=== PATIENT | female | born 1950 | race Caucasian/White ===

== ENCOUNTER 2018-08-29 09:22 | Emergency (ER) | payer BC, SELFPAY ==
[2018-08-29 09:26] VITALS: BP 116/71; PULSE 114; RESP 18; TEMP 37.4; O2SAT 98; BMI 24.2
--- NOTE | 2018-08-29 09:28 | ED.GENADULT ---
HPI - General Adult General Chief complaint: Fever Stated complaint: sick for 3 days Time Seen by Provider: 08/29/18 09:28 Source: patient Mode of arrival: ambulatory Limitations: no limitations History of Present Illness HPI narrative: patient is a 68-year-old female here for evaluation of approximately 3 days of generalized malaise and rigors And not feeling very well. Also has a headache today. States she is drinking plenty of water. Also has right upper quadrant and right flank pain with deep breathing. No urinary symptoms. Some nausea but no vomiting. No change in bowel. No recent travel. No skin changes. Related Data Home Medications Medication Instructions Recorded Confirmed bupropion HCl 150 mg PO QAM 08/29/18 08/29/18 Previous Rx's Medication Instructions Recorded ciprofloxacin HCl 500 mg PO BID 7 Days #14 tab 08/29/18 ondansetron [Zofran ODT] 4 mg PO BID-TID PRN #10 tab 08/29/18 Allergies Allergy/AdvReac Type Severity Reaction Status Date / Time Sulfa (Sulfonamide Allergy Intermediate Hives Verified 08/29/18 09:30 Antibiotics) Review of Systems Constitutional Reports fever(s) ( Subjective) and Reports headache(s) ENT Ears, Nose, Mouth, and Throat: Denies vertigo and Reports headache(s) Cardiovascular Denies chest pain, Denies rapid heart rate, Denies palpitations and Denies dyspnea Respiratory Denies cough and Denies dyspnea Gastrointestinal Gastrointestinal: Reports abdominal pain ( right upper quadrant), Denies change in stool character, Denies nausea and Denies vomiting Genitourinary Denies dysuria, Denies urinary incontinence, Denies urinary hesitancy and Denies urinary urgency Musculoskeletal Reports myalgias and Reports arthralgias Integumentary/Breasts Denies lesions and Denies rash Neurologic Denies confusion, Denies vertigo and Reports headache(s) Psychiatric Denies confusion Endocrine Denies palpitations Hematologic/Lymphatic Denies easy bleeding and Denies easy bruising [facility] Medical History Healthy adult (Acute) Surgical History No pertinent past surgical history (Acute) Social History Smoking Status: Former smoker Exam Initial Vital Signs Initial Vital Signs: Vital Signs Temperature 99.3 F 08/29/18 09:26 Pulse Rate 114 H 08/29/18 09:26 Respiratory Rate 18 08/29/18 09:26 Blood Pressure 116/71 08/29/18 09:26 Pulse Oximetry 98 08/29/18 09:26 Const General: cooperative, healthy appearing, comfortable, well developed, well groomed and No acute distress Orientation: alert, awake and oriented x3 HENMT Head: normal to inspection and normocephalic Resp Effort & Inspection: normal respiratory effort Auscultation: clear to auscultation bilaterally Cardio Rate: tachycardic Rhythm: regular rhythm Pulses: radial pulses present GI Inspection: non-distended Palpation: soft, No firm and No ascites Back/Spine/Pelvis Back: No CVA tenderness ( no CVA tenderness on my exam) Skin Lesions: no lesions Rashes: no rashes Neuro General: alert, awake and oriented x3 Extrem General: normal to inspection and capillary refill normal Psych Appearance: grossly normal and well kempt Course Orders Ordered: ED Orders 08/29/18 09:44 Urine Microscopic Stat 08/29/18 09:51 XR chest 2V Stat 08/29/18 10:42 Complete Blood Count AUTO DIFF Stat Comprehensive Metabolic Panel Stat Lactate (Lactic Acid) Stat Lipase Stat Procalcitonin Stat Sodium Chloride (Normal Saline 0.9%) 1,000 mls @ 1,000 mls/hr IV BOLUS ONE Stop: 08/29/18 12:05 Last Admin: 08/29/18 11:09 Dose: 1,000 mls/hr Discontinued Medications Acetaminophen (Tylenol) 650 mg PO NOW ONE Stop: 08/29/18 09:53 Last Admin: 08/29/18 10:17 Dose: 650 mg Sodium Chloride (Normal Saline 0.9%) 1,000 mls @ 1,000 mls/hr IV BOLUS ONE Stop: 08/29/18 10:32 Last Infusion: 08/29/18 11:09 Dose: 0 mls/hr Admin: 08/29/18 10:17 Dose: 1,000 mls/hr Vital Signs - 8 hr 08/29/18 09:26 08/29/18 10:17 08/29/18 10:21 Temperature 99.3 F 99.3 F Pulse Rate 114 H 107 H Respiratory Rate 18 14 Blood Pressure 116/71 Blood Pressure [Left Arm] 114/74 Pulse Oximetry 98 99 08/29/18 11:10 Temperature 100.6 F H Pulse Rate 100 H Respiratory Rate Blood Pressure Blood Pressure [Left Arm] 102/60 Pulse Oximetry 94 Medical Decision Making Lab Data Lab results reviewed: Yes I reviewed the patient's lab results. Result diagrams: 08/29/18 10:42 08/29/18 10:42 Lab Results 08/29/18 08/29/18 08/29/18 Range/Units 09:44 10:42 10:42 WBC 14.5 H (4.5-11.0) X10^3/uL RBC 4.00 (4.0-5.2) X10^6/uL Hgb 12.2 (12.0-16.0) g/dL Hct 36.2 (36-46) % MCV 90.4 (80-100) fL MCH 30.6 (26-34) PG MCHC 33.8 (30-36) % RDW 12.3 (11.6-14.8) % Plt Count 230 (150-400) X10^3/uL Neut % (Auto) 80.8 H (50-75) % Lymph % (Auto) 7.3 L (25-40) % [place] % (Auto) 11.7 (3-14) % Eos % (Auto) 0.0 L (2-4) % Baso % (Auto) 0.2 (0-2) % Neut # (Auto) 06501 H (2641-4404) /uL Sodium 140 (137-145) mmol/L Potassium 3.7 (3.4-5.1) mmol/L Chloride 105 (98-107) mmol/L Carbon Dioxide 23 (22-32) mmol/L BUN 10 (7-17) mg/dL Creatinine 0.70 (0.52-1.04) mg/dL Estimated GFR > 60.0 (>60) mL/min BUN/Creatinine Ratio 14.3 (6-22) Glucose 113 H (80-110) mg/dL Lactate (0.7-2.1) mmol/L Calcium 8.1 L (8.4-10.2) mg/dL Total Bilirubin 1.7 H (0.2-1.3) mg/dL AST 57 H (14-36) IU/L ALT 86 H (9-52) IU/L Alkaline Phosphatase 105 (38-126) U/L Total Protein 6.7 (6.3-8.2) g/dL Albumin 3.6 (3.5-5.0) g/dL Globulin 3.1 (1.7-4.1) g/dL Albumin/Globulin Ratio 1.2 (1.0-2.8) Lipase 30 (23-300) U/L Procalcitonin (<0.5) ng/mL Urine RBC 1-5/hpf (0-5/HPF) Urine WBC 30-100/hpf H (0-5/HPF) Ur Squamous Epith Cells 5-10 /hpf H Urine Bacteria Many (>30) H (None) Ur Culture Indicated? Cult not indicated Micro UA Comment Not Reportable 08/29/18 08/29/18 Range/Units 10:42 10:42 WBC (4.5-11.0) X10^3/uL RBC (4.0-5.2) X10^6/uL Hgb (12.0-16.0) g/dL Hct (36-46) % MCV (80-100) fL MCH (26-34) PG MCHC (30-36) % RDW (11.6-14.8) % Plt Count (150-400) X10^3/uL Neut % (Auto) (50-75) % Lymph % (Auto) (25-40) % [place] % (Auto) (3-14) % Eos % (Auto) (2-4) % Baso % (Auto) (0-2) % Neut # (Auto) (7557-3118) /uL Sodium (137-145) mmol/L Potassium (3.4-5.1) mmol/L Chloride (98-107) mmol/L Carbon Dioxide (22-32) mmol/L BUN (7-17) mg/dL Creatinine (0.52-1.04) mg/dL Estimated GFR (>60) mL/min BUN/Creatinine Ratio (6-22) Glucose (80-110) mg/dL Lactate 0.9 (0.7-2.1) mmol/L Calcium (8.4-10.2) mg/dL Total Bilirubin (0.2-1.3) mg/dL AST (14-36) IU/L ALT (9-52) IU/L Alkaline Phosphatase (38-126) U/L Total Protein (6.3-8.2) g/dL Albumin (3.5-5.0) g/dL Globulin (1.7-4.1) g/dL Albumin/Globulin Ratio (1.0-2.8) Lipase (23-300) U/L Procalcitonin 0.55 H (<0.5) ng/mL Urine RBC (0-5/HPF) Urine WBC (0-5/HPF) Ur Squamous Epith Cells Urine Bacteria (None) Ur Culture Indicated? Micro UA Comment Urine Dip Bedside Urine Glucose Negative Bedside Urine Bilirubin - Negative Bedside Urine Ketone ++ 40 Urine Specific [place] 1.015 Bedside Urine Occult Blood + Bedside Urine pH 6.0 Bedside Urine Protein ++ 100 Bedside Urine Urobilinogen 2+ 4mg Bedside Urine Nitrite + Positive Bedside Urine Leukocytes ++ 125 Esterase Point of care testing: Urine Dip Bedside Urine Glucose Negative Bedside Urine Bilirubin - Negative Bedside Urine Ketone ++ 40 Urine Specific [place] 1.015 Bedside Urine Occult Blood + Bedside Urine pH 6.0 Bedside Urine Protein ++ 100 Bedside Urine Urobilinogen 2+ 4mg Bedside Urine Nitrite + Positive Bedside Urine Leukocytes ++ 125 Esterase Imaging Data Chest x-ray: Radiologist's impression: PROCEDURE: XR CHEST 2V INDICATIONS: right sided pain with deep breath TECHNIQUE: 2 views of the chest were acquired. COMPARISON: None. FINDINGS: Surgical changes and devices: None. Lungs and pleura: No pleural effusions or pneumothorax. Lungs are clear. Mediastinum: Mediastinal contours are normal. Heart size is normal. Bones and chest wall: No suspicious bony abnormalities. Soft tissues appear unremarkable. IMPRESSION: No acute cardiopulmonary pathology. Dictated by: Zach Hernandez M.D. on 08/29/2018 at 10:24 Approved by: Zach Hernandez M.D. on 08/29/2018 at 10:25 MDM Narrative Medical decision making narrative: Patient is nontoxic appearing. He is tolerating oral intake. Does have an elevated white blood cell count but given the setting of a nitrite positive urine I suspect that the urinary tract infection is what is causing her leukocytosis. She is also slightly febrile. Lactate unremarkable. Does has a slightly elevated procalcitonin. She does have right flank pain. Slightly elevation of her liver function tests however her physical exam is not consistent with gallbladder pathology. I do suspect potential pyelonephritis. she is tolerating oral intake. Will send home with antibiotics in nausea medication. Did inform her that if she could not take the antibiotics, her symptoms worsen, she started to get worsening right upper quadrant pain that she does need to return to the emergency department for re-evaluation. I do feel that a trial of home with p.o. antibiotics is not unreasonable given her clinical condition. Patient expressed understanding and agreement plan. Discharge Plan Departure Patient Disposition: Home Clinical Impression: Pyelonephritis Instructions: DI for Kidney Infection Activity Restrictions/Additional Instructions: recommend that you increase your fluid intake. If your symptoms worsen or do not improve despite the antibiotics you were given today than you do need to be re-evaluated. If you cannot take the antibiotics at home for any reason then return to the emergency department for re-evaluation. Call your primary care doctor for a follow-up. Prescriptions: New ciprofloxacin HCl 500 mg tablet 500 mg PO BID 7 Days Qty: 14 RF: 0 ondansetron [Zofran ODT] 4 mg tablet,disintegrating 4 mg PO BID-TID PRN (Reason: nausea and vomiting) Qty: 10 RF: 0 No Action bupropion HCl 150 mg Tablet Extended Release 24 Hr 150 mg PO QAM RF: 0
--- NOTE | 2018-08-29 09:51 | DI.RAD.S_ITS ---
PROCEDURE: XR CHEST 2V INDICATIONS: right sided pain with deep breath TECHNIQUE: 2 views of the chest were acquired. COMPARISON: None. FINDINGS: Surgical changes and devices: None. Lungs and pleura: No pleural effusions or pneumothorax. Lungs are clear. Mediastinum: Mediastinal contours are normal. Heart size is normal. Bones and chest wall: No suspicious bony abnormalities. Soft tissues appear unremarkable. IMPRESSION: No acute cardiopulmonary pathology. Dictated by: Zach Hernandez M.D. on 08/29/2018 at 10:24 Approved by: Zach Hernandez M.D. on 08/29/2018 at 10:25
[2018-08-29 10:17] VITALS: TEMP 37.4
[2018-08-29] MEDS: SODIUM CHLORIDE 0.9% 1,000 ML 1000 ML IV ×2 (10:17→11:09)
[2018-08-29] MEDS: ACETAMINOPHEN 325 MG TABLET 650 MG PO (10:17)
[2018-08-29 10:19] LABS: Bacteria Urine Many (>30); Culture Indicated Urine Cult Not Indicated; RBC Urine 1-5/HPF (0-5/HPF); Squamous Epithelial Cell Urine 5-10 /HPF; WBC Urine 30-100/HPF (0-5/HPF)
[2018-08-29 10:21] VITALS: BP 114/74; PULSE 107; RESP 14; O2SAT 99
[2018-08-29 11:07] LABS: Add Manual Diff / Slide Review NO; Basophils Percent Auto 0.2 % (0-2); Hematocrit 36.2 % (36-46); Hemoglobin 12.2 g/dL (12.0-16.0); Lactate (Lactic Acid) 0.9 mmol/L (0.7-2.1); Lymphocytes Percent Auto 7.3 % (25-40); Mean Corpuscular HGB Conc 33.8 % (30-36); Mean Corpuscular Hemoglobin 30.6 PG (26-34); Mean Corpuscular Volume 90.4 fL (80-100); Monocytes Percent Auto 11.7 % (3-14); Neutrophils Absolute Auto 11700 /uL (3000-5900); Neutrophils Percent Auto 80.8 % (50-75); Platelet Count 230 X10^3/uL (150-400); Red Cell Distribution Width 12.3 % (11.6-14.8); White Blood Cell Count 14.5 X10^3/uL (4.5-11.0)
[2018-08-29 11:10] VITALS: BP 102/60; PULSE 100; TEMP 38.1; O2SAT 94
[2018-08-29 11:10] LABS: Alanine Aminotransferase 86 IU/L (9-52); Albumin 3.6 g/dL (3.5-5.0); Albumin Globulin Ratio 1.2 (1.0-2.8); Alkaline Phosphatase 105 U/L (38-126); Aspartate Aminotransferase 57 IU/L (14-36); BUN Creatinine Ratio 14.3 (6-22); Bilirubin Total 1.7 mg/dL (0.2-1.3); Blood Urea Nitrogen 10 mg/dL (7-17); Calcium 8.1 mg/dL (8.4-10.2); Carbon Dioxide 23 mmol/L (22-32); Chloride 105 mmol/L (98-107); Estimated Glomerular Filt Rate > 60.0 mL/min (>60); Globulin 3.1 g/dL (1.7-4.1); Glucose 113 mg/dL (80-110); HEMOLYSIS < 15 (0-50); Lipase 30 U/L (23-300); Potassium 3.7 mmol/L (3.4-5.1); Sodium 140 mmol/L (137-145); Total Protein 6.7 g/dL (6.3-8.2)
[2018-08-29 11:29] LABS: Procalcitonin 0.55 ng/mL (<0.5)
[2018-08-29 12:08] VITALS: TEMP 36.7
== END 2018-08-29 12:09 | disposition home or self-care (01) ==
PROVIDERS: Emergency Provider Emergency Medicine
DX: N12 Tubulo-interstitial nephritis, not specified as acute or chronic (principal)
CPT/HCPCS: 36415; 71046; 80053; 81003; 81015; 83605; 83690; 84145; 85025; 87077; 87086; 87186; 96360; 96361; 99283; 99284

== ENCOUNTER 2018-08-30 17:22 | Inpatient (IN) | payer MEDICARE, BC, SELFPAY ==
[2018-08-30 17:26] VITALS: BP 129/73; PULSE 82; RESP 22; TEMP 36.5; O2SAT 100
--- NOTE | 2018-08-30 17:45 | DI.US.S_ITS ---
PROCEDURE: US ABDOMEN COMPLETE INDICATIONS: PAIN TECHNIQUE: Real-time scanning was performed of the abdominal and retroperitoneal organs, with image documentation. COMPARISON: None. FINDINGS: Liver: Liver is normal in size. There are a few simple hepatic cysts, including a large cyst in the right hepatic lobe measuring up to 9.5 x 8.3 x 9.1 cm. Gallbladder: No gallstones, gallbladder wall thickening, or pericholecystic fluid. Biliary ducts: Intrahepatic bile ducts are non-dilated. Extrahepatic bile duct caliber measures 6 mm. Normal is 6-7 mm or less in diameter, or 10 mm or less post-cholecystectomy. Pancreas: Not well-seen. Spleen: Spleen is normal in size and homogeneous in echotexture. Kidneys: Right kidney measures 12.2 cm long; left kidney measures 10.3 cm long. No hydronephrosis. Aorta: Visualized aorta is normal in caliber at less than 3 cm. Iliacs: Proximal common iliac arteries are normal in caliber at less than 2.5 cm. IVC: Intrahepatic inferior vena cava is patent. Miscellaneous: No free abdominal fluid. IMPRESSION: 1. No definite acute intra-abdominal sonographic abnormality. 2. Multiple hepatic cysts measuring up to 9.5 cm. Dictated by: Al Mathew M.D. on 08/30/2018 at 18:57 Approved by: Al Mathew M.D. on 08/30/2018 at 19:09
--- NOTE | 2018-08-30 18:06 | ED.ABDPAIN ---
HPI - Abdominal Pain <KEVAN Dickinson - Last Filed: 08/30/18 21:21> General Chief Complaint: Abdominal Pain Stated Complaint: STATES PAIN IS BAD, THINKS GALBLADDER Time Seen by Provider: 08/30/18 17:31 Source: patient Mode of arrival: ambulatory Limitations: no limitations History of Present Illness HPI narrative: patient presents with chief complaint of abdominal pain. She states she was seen yesterday and diagnosed with pyelonephritis. She complains of persistent right upper quadrant abdominal pain radiating to her back. She has taken 3 doses of Cipro. She also complains of nausea as taken several doses of Zofran. She denies any fevers. She denies any chest pain or shortness of breath. she does complaint of bilateral flank pain. She denies any dysuria urgency or frequency. Related Data Allergies Allergy/AdvReac Type Severity Reaction Status Date / Time Sulfa (Sulfonamide Allergy Verified 08/30/18 17:28 Antibiotics) Review of Systems <BEAR Dickinson - Last Filed: 08/30/18 21:21> Review of Systems GENERAL: Denies chills, fatigue, malaise, fever, sweats. HEENT: Denies sinus pain, ear pain, sore throat, difficulty swallowing, dizziness. RESPIRATORY: Denies dyspnea, cough, wheezing, hemoptysis, sputum. CARDIOVASCULAR: Denies chest pain, palpitations, orthopnea, edema, GASTROINTESTINAL: see HPI : see HPI MUSCULOSKELETAL: denies weakness, joint pain, or bony pain SKIN: Denies rash, skin lesions, or other NEUROLOGIC: Denies weakness, headache, numbness, change in speech, confusion, seizures, incoordination. PSYCHIATRIC: No concerning psychosocial issues. 12 point review of systems is negative except for those stated above Exam <KEVAN Dickinson - Last Filed: 08/30/18 21:21> Narrative Exam Narrative: GENERAL: This is a well-nourished, well-developed patient, Teary. HEAD: Atraumatic. Normocephalic. No temporal or scalp tenderness. EYES: Pupils equal round and reactive. Extraocular motions intact. No scleral icterus. No injection or drainage. ENT: Nose without bleeding, purulent drainage or septal hematoma. Throat without erythema, tonsillar hypertrophy or exudate. Uvula midline. Airway patent. NECK: Trachea midline. No JVD or lymphadenopathy. Supple, nontender, no meningeal signs. CARDIOVASCULAR: Regular rate and rhythm without murmurs, gallops, or rubs. RESPIRATORY: Clear to auscultation. Breath sounds equal bilaterally. No wheezes, rales, or rhonchi. GASTROINTESTINAL: Abdomen soft. Generalized pain to palpation. Bilateral CVA tenderness. Positive Reilly sign. Patient has severe pain on palpation of right upper quadrant. No pulsatile mass. EXTREMITIES: No clubbing, cyanosis, or edema. No joint tenderness, effusion, or edema noted. BACK: Nontender without deformity or crepitance. CVA tenderness bilaterally NEURO: AOx3. SKIN: No rash or erythema. Initial Vital Signs Initial Vital Signs: Vital Signs Temperature 97.7 F 08/30/18 17:26 Pulse Rate 82 08/30/18 17:26 Respiratory Rate 22 08/30/18 17:26 Blood Pressure 129/73 08/30/18 17:26 Pulse Oximetry 100 08/30/18 17:26 <Tami Watters DO - Last Filed: 08/30/18 22:36> Initial Vital Signs Initial Vital Signs: Vital Signs Temperature 97.7 F 08/30/18 17:26 Pulse Rate 82 08/30/18 17:26 Respiratory Rate 22 08/30/18 17:26 Blood Pressure 129/73 08/30/18 17:26 Pulse Oximetry 100 08/30/18 17:26 Course <CHRIS Dickinson-BC - Last Filed: 08/30/18 21:21> Course Narrative: checked on the patient several times throughout her stay. Orders Ordered: ED Orders 08/30/18 17:45 US abdomen complete Stat 08/30/18 17:46 EKG-12 Lead Stat 08/30/18 18:11 CT abdomen pelvis w con Stat 08/30/18 18:15 Amylase Stat Complete Blood Count AUTO DIFF Stat Comprehensive Metabolic Panel Stat Lactate (Lactic Acid) Stat Lipase Stat Procalcitonin Stat Troponin & CK Cardiac Panel Stat 08/30/18 20:22 Blood Culture Stat 08/30/18 21:55 Education, smoking cessation ONGOING 08/31/18 05:00 Complete Blood Count AUTO DIFF Routine Comprehensive Metabolic Panel Routine Enoxaparin Sodium (Lovenox) 40 mg SUBCUT DAILY MAKAYLA Sodium Chloride (Normal Saline 0.9%) 1,000 mls @ 100 mls/hr IV CONT MAKAYLA Levofloxacin (Levaquin) 750 mg in 150 mls @ 100 mls/hr IV Q24H MAKAYLA Morphine Sulfate (Morphine) 4 mg IV PRN PRN PRN Reason: Pain, Severe (7-10) Last Admin: 08/30/18 19:13 Dose: 4 mg Morphine Sulfate (Morphine) 2 mg IV Q4H PRN PRN Reason: Pain, Moderate (4-6) Ondansetron HCl (Zofran) 4 mg IV Q8H PRN PRN Reason: Nausea And Vomiting Discontinued Medications Sodium Chloride (Normal Saline 0.9%) 1,000 mls @ 1,000 mls/hr IV BOLUS ONE Stop: 08/30/18 19:07 Last Infusion: 08/30/18 19:08 Dose: 0 mls/hr Admin: 08/30/18 18:10 Dose: 1,000 mls/hr Sodium Chloride (Normal Saline 0.9%) 1,000 mls @ 1,000 mls/hr IV BOLUS ONE Stop: 08/30/18 20:11 Last Infusion: 08/30/18 20:29 Dose: 0 mls/hr Admin: 08/30/18 19:13 Dose: 1,000 mls/hr Levofloxacin (Levaquin) 750 mg in 150 mls @ 100 mls/hr IV NOW ONE Stop: 08/30/18 21:26 Last Infusion: 08/30/18 21:51 Dose: 0 mls/hr Admin: 08/30/18 20:13 Dose: 100 mls/hr Morphine Sulfate (Morphine) 4 mg IV NOW ONE Stop: 08/30/18 18:09 Last Admin: 08/30/18 18:11 Dose: 4 mg Morphine Sulfate (Morphine Sulfate) 4 mg IV NOW ONE Stop: 08/30/18 19:12 Last Admin: 08/30/18 19:13 Dose: Not Given Reevaluation(s) Reevaluation #1: patient is stating that pain is slightly improved since 1st dose of morphine. States that nausea is almost completely gone. Time: 18:40 Consultations Consultation #1: discussed the patient with Dr. Matt who is kind enough to accept the patient to observation status given her elevated white blood cell count, worsening symptoms and elevated procalcitonin. Time: 20:20 Vital Signs - 8 hr 08/30/18 17:26 08/30/18 18:18 08/30/18 19:38 Temperature 97.7 F Pulse Rate 82 77 94 H Respiratory Rate 22 74 H 16 Blood Pressure 129/73 Blood Pressure [Right Arm] 126/60 109/66 Pulse Oximetry 100 100 96 08/30/18 20:29 08/30/18 21:45 Temperature 98.2 F Pulse Rate 94 H 67 Respiratory Rate 14 18 Blood Pressure 98/51 L Blood Pressure [Right Arm] 106/57 L Pulse Oximetry 97 97 <Tami Watters, DO - Last Filed: 08/30/18 22:36> Orders Ordered: ED Orders 08/30/18 17:45 US abdomen complete Stat 08/30/18 17:46 EKG-12 Lead Stat 08/30/18 18:11 CT abdomen pelvis w con Stat 08/30/18 18:15 Amylase Stat Complete Blood Count AUTO DIFF Stat Comprehensive Metabolic Panel Stat Lactate (Lactic Acid) Stat Lipase Stat Procalcitonin Stat Troponin & CK Cardiac Panel Stat 08/30/18 20:22 Blood Culture Stat 08/30/18 21:55 Education, smoking cessation ONGOING 08/31/18 05:00 Complete Blood Count AUTO DIFF Routine Comprehensive Metabolic Panel Routine Enoxaparin Sodium (Lovenox) 40 mg SUBCUT DAILY MAKAYLA Sodium Chloride (Normal Saline 0.9%) 1,000 mls @ 100 mls/hr IV CONT MAKAYLA Levofloxacin (Levaquin) 750 mg in 150 mls @ 100 mls/hr IV Q24H MAKAYLA Morphine Sulfate (Morphine) 4 mg IV PRN PRN PRN Reason: Pain, Severe (7-10) Last Admin: 08/30/18 19:13 Dose: 4 mg Morphine Sulfate (Morphine) 2 mg IV Q4H PRN PRN Reason: Pain, Moderate (4-6) Ondansetron HCl (Zofran) 4 mg IV Q8H PRN PRN Reason: Nausea And Vomiting Discontinued Medications Sodium Chloride (Normal Saline 0.9%) 1,000 mls @ 1,000 mls/hr IV BOLUS ONE Stop: 08/30/18 19:07 Last Infusion: 08/30/18 19:08 Dose: 0 mls/hr Admin: 08/30/18 18:10 Dose: 1,000 mls/hr Sodium Chloride (Normal Saline 0.9%) 1,000 mls @ 1,000 mls/hr IV BOLUS ONE Stop: 08/30/18 20:11 Last Infusion: 08/30/18 20:29 Dose: 0 mls/hr Admin: 08/30/18 19:13 Dose: 1,000 mls/hr Levofloxacin (Levaquin) 750 mg in 150 mls @ 100 mls/hr IV NOW ONE Stop: 08/30/18 21:26 Last Infusion: 08/30/18 21:51 Dose: 0 mls/hr Admin: 08/30/18 20:13 Dose: 100 mls/hr Morphine Sulfate (Morphine) 4 mg IV NOW ONE Stop: 08/30/18 18:09 Last Admin: 08/30/18 18:11 Dose: 4 mg Morphine Sulfate (Morphine Sulfate) 4 mg IV NOW ONE Stop: 08/30/18 19:12 Last Admin: 08/30/18 19:13 Dose: Not Given Vital Signs - 8 hr 08/30/18 17:26 08/30/18 18:18 08/30/18 19:38 Temperature 97.7 F Pulse Rate 82 77 94 H Respiratory Rate 22 74 H 16 Blood Pressure 129/73 Blood Pressure [Right Arm] 126/60 109/66 Pulse Oximetry 100 100 96 08/30/18 20:29 08/30/18 21:45 Temperature 98.2 F Pulse Rate 94 H 67 Respiratory Rate 14 18 Blood Pressure 98/51 L Blood Pressure [Right Arm] 106/57 L Pulse Oximetry 97 97 MDM - Abdominal Pain <CHRIS Dickinson-BC - Last Filed: 08/30/18 21:21> Lab Data Result diagrams: 08/30/18 18:15 08/30/18 18:15 Lab Results 08/30/18 08/30/18 08/30/18 Range/Units 18:15 18:15 18:15 WBC 17.5 H (4.5-11.0) X10^3/uL RBC 3.86 L (4.0-5.2) X10^6/uL Hgb 11.8 L (12.0-16.0) g/dL Hct 35.4 L (36-46) % MCV 91.6 (80-100) fL MCH 30.5 (26-34) PG MCHC 33.3 (30-36) % RDW 12.0 (11.6-14.8) % Plt Count 243 (150-400) X10^3/uL Neut % (Auto) 79.4 H (50-75) % Lymph % (Auto) 9.1 L (25-40) % [place] % (Auto) 11.3 (3-14) % Eos % (Auto) 0.0 L (2-4) % Baso % (Auto) 0.2 (0-2) % Neut # (Auto) 88210 H (4695-9159) /uL Sodium 142 (137-145) mmol/L Potassium 3.4 (3.4-5.1) mmol/L Chloride 108 H (98-107) mmol/L Carbon Dioxide 22 (22-32) mmol/L BUN 9 (7-17) mg/dL Creatinine 0.70 (0.52-1.04) mg/dL Estimated GFR > 60.0 (>60) mL/min BUN/Creatinine Ratio 12.9 (6-22) Glucose 95 (80-110) mg/dL Lactate (0.7-2.1) mmol/L Calcium 8.3 L (8.4-10.2) mg/dL Total Bilirubin 1.4 H (0.2-1.3) mg/dL AST 41 H (14-36) IU/L ALT 71 H (9-52) IU/L Alkaline Phosphatase 138 H (38-126) U/L Total Creatine Kinase 40 (30-135) U/L CK-MB (CK-2) TNP CK-MB (CK-2) Rel Index TNP Troponin I < 0.012 (0.01-0.034) ng/mL Total Protein 6.4 (6.3-8.2) g/dL Albumin 3.5 (3.5-5.0) g/dL Globulin 2.9 (1.7-4.1) g/dL Albumin/Globulin Ratio 1.2 (1.0-2.8) Amylase 36 (30-110) U/L Lipase 37 (23-300) U/L Procalcitonin 0.69 H (<0.5) ng/mL 10/16/18 Range/Units 18:15 WBC (4.5-11.0) X10^3/uL RBC (4.0-5.2) X10^6/uL Hgb (12.0-16.0) g/dL Hct (36-46) % MCV (80-100) fL MCH (26-34) PG MCHC (30-36) % RDW (11.6-14.8) % Plt Count (150-400) X10^3/uL Neut % (Auto) (50-75) % Lymph % (Auto) (25-40) % [place] % (Auto) (3-14) % Eos % (Auto) (2-4) % Baso % (Auto) (0-2) % Neut # (Auto) (9346-6795) /uL Sodium (137-145) mmol/L Potassium (3.4-5.1) mmol/L Chloride (98-107) mmol/L Carbon Dioxide (22-32) mmol/L BUN (7-17) mg/dL Creatinine (0.52-1.04) mg/dL Estimated GFR (>60) mL/min BUN/Creatinine Ratio (6-22) Glucose (80-110) mg/dL Lactate 1.2 (0.7-2.1) mmol/L Calcium (8.4-10.2) mg/dL Total Bilirubin (0.2-1.3) mg/dL AST (14-36) IU/L ALT (9-52) IU/L Alkaline Phosphatase (38-126) U/L Total Creatine Kinase (30-135) U/L CK-MB (CK-2) CK-MB (CK-2) Rel Index Troponin I (0.01-0.034) ng/mL Total Protein (6.3-8.2) g/dL Albumin (3.5-5.0) g/dL Globulin (1.7-4.1) g/dL Albumin/Globulin Ratio (1.0-2.8) Amylase (30-110) U/L Lipase (23-300) U/L Procalcitonin (<0.5) ng/mL Point of care testing: Urine Dip Bedside Urine Glucose 1000 mg/dl Bedside Urine Bilirubin - Negative Bedside Urine Ketone +++ 80 Urine Specific [place] 1.015 Bedside Urine Occult Blood +/- Bedside Urine pH 6.0 Bedside Urine Protein +/- 15 Bedside Urine Urobilinogen 1+ 2mg Bedside Urine Nitrite - Negative Bedside Urine Leukocytes - Negative Esterase Imaging Data US - abdomen: Radiologist's impression: [address] [address] Ultrasound Report Signed Patient: Batsheva Sosa JMR#: [id number] : 2Acct:[id number] Age/Sex: 68 / FDate of Service: 08/30/18 Loc: ED Accession Number: [id number] Procedure: US abdomen complete Ordering Provider: Ramya Dave-JAY PROCEDURE: US ABDOMEN COMPLETE INDICATIONS: PAIN TECHNIQUE: Real-time scanning was performed of the abdominal and retroperitoneal organs, with image documentation. COMPARISON: None. FINDINGS: Liver: Liver is normal in size. There are a few simple hepatic cysts, including a large cyst in the right hepatic lobe measuring up to 9.5 x 8.3 x 9.1 cm. Gallbladder: No gallstones, gallbladder wall thickening, or pericholecystic fluid. Biliary ducts: Intrahepatic bile ducts are non-dilated. Extrahepatic bile duct caliber measures 6 mm. Normal is 6-7 mm or less in diameter, or 10 mm or less post-cholecystectomy. Pancreas: Not well-seen. Spleen: Spleen is normal in size and homogeneous in echotexture. Kidneys: Right kidney measures 12.2 cm long; left kidney measures 10.3 cm long. No hydronephrosis. Aorta: Visualized aorta is normal in caliber at less than 3 cm. Iliacs: Proximal common iliac arteries are normal in caliber at less than 2.5 cm. IVC: Intrahepatic inferior vena cava is patent. Miscellaneous: No free abdominal fluid. IMPRESSION: 1. No definite acute intra-abdominal sonographic abnormality. 2. Multiple hepatic cysts measuring up to 9.[address] scan - pelvis: Radiologist's impression: [address] [address] [address] Scan Report Signed Patient: Batsheva Sosa JMR#: [id number] : 2Acct:[id number] Age/Sex: 68 / FDate of Service: 08/30/18 Loc: ED Accession Number: [id number] Procedure: CT abdomen pelvis w con Ordering Provider: Ramya Dave-JAY PROCEDURE: CT ABDOMEN PELVIS W CON INDICATIONS: abd pain TECHNIQUE: After the administration of intravenous contrast, 5 mm thick sections acquired from the diaphragm to the symphysis. 5 mm coronal and sagittal reformats were acquired. For radiation dose reduction, the following was used: automated exposure control, adjustment of mA and/or kV according to patient size. COMPARISON: [facility], , US ABDOMEN COMPLETE, 08/30/2018, 17:47. FINDINGS: Image quality: Excellent. ABDOMEN: Lung bases: There is mild dependent atelectasis. Heart size is normal. Solid organs: Multiple hepatic cysts are demonstrated with the largest in the right lobe measuring up to 9.1 cm. A few additional low density foci are also demonstrated Biliary system is non dilated. Pancreas enhances normally. Spleen is normal in size and enhancement. No adrenal nodules. The kidneys demonstrate no hydronephrosis. There is patchy heterogeneous enhancement of the right kidney consistent with a striated nephrogram and pyelonephritis. There is minimal right perinephric stranding. No perinephric fluid collections. A right parapelvic renal cyst is noted. The left kidney demonstrates normal enhancement. There is mild urothelial enhancement along the right ureter with periureteral fat stranding. There is minimal fat stranding adjacent to the left ureter. Peritoneum and bowel: Bowel loops demonstrate normal wall thickness and caliber. The appendix is normal in appearance. There is colonic diverticulosis without acute diverticulitis. No free fluid or air. Nodes and vessels: No retroperitoneal or mesenteric adenopathy by size criteria. Aorta and inferior vena cava are normal in size. Miscellaneous: No ventral hernias. PELVIS: Genitourinary: Bladder wall thickness is normal. Miscellaneous: No inguinal hernias or adenopathy. Bones: No suspicious bony lesions. There is a levoscoliosis of the lower lumbar spine centered at L4. No vertebral body compression fractures. IMPRESSION: 1. Heterogeneous right renal enhancement consistent with a striated nephrogram and pyelonephritis. No perinephric abscess or hydronephrosis identified. 2. Mild urothelial enhancement in the ureters bilaterally with associated mild fat stranding, right greater than left. The findings are compatible for urinary tract infection. Dictated by: Al Mathew M.D. on 08/30/2018 at 19:57 Approved by: Al Mathew M.D. on 08/30/2018 at 20:04 ECG Data Attestation: I personally reviewed and interpreted this ECG as follows: Interpretation: Sinus rhythm. Heart rate 72. No ST elevation or depression. No ectopy noted. [facility] Narrative Medical decision making narrative: Patient presents with chief complaint of abdominal pain. She was seen yesterday and diagnosed with pyelonephritis. Given the level of her abdominal pain, I obtained imaging. Ultrasound did not show any gallbladder etiology. She was found to have a large liver cyst on ultrasound as well as CT. Pyelonephritis was found on CT as well. The patient had blood cultures done in the emergency department. I gave her a dose Levaquin in the emergency department. Given that her white blood cell counts clubbing despite outpatient therapy and she is feeling worse despite outpatient therapy as well as her elevated procalcitonin, I contacted Dr. Matt regarding admission, who kindly agreed to accept this patient. <Tami Watters, DO - Last Filed: 08/30/18 22:36> Lab Data Lab Results 08/30/18 08/30/18 08/30/18 Range/Units 18:15 18:15 18:15 WBC 17.5 H (4.5-11.0) X10^3/uL RBC 3.86 L (4.0-5.2) X10^6/uL Hgb 11.8 L (12.0-16.0) g/dL Hct 35.4 L (36-46) % MCV 91.6 (80-100) fL MCH 30.5 (26-34) PG MCHC 33.3 (30-36) % RDW 12.0 (11.6-14.8) % Plt Count 243 (150-400) X10^3/uL Neut % (Auto) 79.4 H (50-75) % Lymph % (Auto) 9.1 L (25-40) % [place] % (Auto) 11.3 (3-14) % Eos % (Auto) 0.0 L (2-4) % Baso % (Auto) 0.2 (0-2) % Neut # (Auto) 21792 H (8060-9366) /uL Sodium 142 (137-145) mmol/L Potassium 3.4 (3.4-5.1) mmol/L Chloride 108 H (98-107) mmol/L Carbon Dioxide 22 (22-32) mmol/L BUN 9 (7-17) mg/dL Creatinine 0.70 (0.52-1.04) mg/dL Estimated GFR > 60.0 (>60) mL/min BUN/Creatinine Ratio 12.9 (6-22) Glucose 95 (80-110) mg/dL Lactate (0.7-2.1) mmol/L Calcium 8.3 L (8.4-10.2) mg/dL Total Bilirubin 1.4 H (0.2-1.3) mg/dL AST 41 H (14-36) IU/L ALT 71 H (9-52) IU/L Alkaline Phosphatase 138 H (38-126) U/L Total Creatine Kinase 40 (30-135) U/L CK-MB (CK-2) TNP CK-MB (CK-2) Rel Index TNP Troponin I < 0.012 (0.01-0.034) ng/mL Total Protein 6.4 (6.3-8.2) g/dL Albumin 3.5 (3.5-5.0) g/dL Globulin 2.9 (1.7-4.1) g/dL Albumin/Globulin Ratio 1.2 (1.0-2.8) Amylase 36 (30-110) U/L Lipase 37 (23-300) U/L Procalcitonin 0.69 H (<0.5) ng/mL 08/30/18 Range/Units 18:15 WBC (4.5-11.0) X10^3/uL RBC (4.0-5.2) X10^6/uL Hgb (12.0-16.0) g/dL Hct (36-46) % MCV (80-100) fL MCH (26-34) PG MCHC (30-36) % RDW (11.6-14.8) % Plt Count (150-400) X10^3/uL Neut % (Auto) (50-75) % Lymph % (Auto) (25-40) % [place] % (Auto) (3-14) % Eos % (Auto) (2-4) % Baso % (Auto) (0-2) % Neut # (Auto) (3142-6012) /uL Sodium (137-145) mmol/L Potassium (3.4-5.1) mmol/L Chloride (98-107) mmol/L Carbon Dioxide (22-32) mmol/L BUN (7-17) mg/dL Creatinine (0.52-1.04) mg/dL Estimated GFR (>60) mL/min BUN/Creatinine Ratio (6-22) Glucose (80-110) mg/dL Lactate 1.2 (0.7-2.1) mmol/L Calcium (8.4-10.2) mg/dL Total Bilirubin (0.2-1.3) mg/dL AST (14-36) IU/L ALT (9-52) IU/L Alkaline Phosphatase (38-126) U/L Total Creatine Kinase (30-135) U/L CK-MB (CK-2) CK-MB (CK-2) Rel Index Troponin I (0.01-0.034) ng/mL Total Protein (6.3-8.2) g/dL Albumin (3.5-5.0) g/dL Globulin (1.7-4.1) g/dL Albumin/Globulin Ratio (1.0-2.8) Amylase (30-110) U/L Lipase (23-300) U/L Procalcitonin (<0.5) ng/mL Point of care testing: Urine Dip Bedside Urine Glucose 1000 mg/dl Bedside Urine Bilirubin - Negative Bedside Urine Ketone +++ 80 Urine Specific [place] 1.015 Bedside Urine Occult Blood +/- Bedside Urine pH 6.0 Bedside Urine Protein +/- 15 Bedside Urine Urobilinogen 1+ 2mg Bedside Urine Nitrite - Negative Bedside Urine Leukocytes - Negative Esterase Discharge Plan Departure Patient Disposition: Admitted as Observation Clinical Impression: Acute pyelonephritis, Liver cyst Discharge Date/Time: 08/30/18 21:52 Interventions: ED Discharge Assessment Last Done: 08/30/18 21:02 Admit Date/Time: 08/30/18 20:58 Admit Provider: Guillermo Matt <Tami Watters DO - Last Filed: 08/30/18 22:36> Cosign ED Attending Taylorature Attestation: I was immediately available in the department for consultation. Documentation has been reviewed. I agree with assessment and plan.
[2018-08-30] MEDS: SODIUM CHLORIDE 0.9% 1,000 ML 1000 ML IV ×2 (18:10→19:13)
[2018-08-30] MEDS: MORPHINE 4 MG/ML INJ IV ×2 (18:11→19:13)
--- NOTE | 2018-08-30 18:11 | DI.CT.S_ITS ---
PROCEDURE: CT ABDOMEN PELVIS W CON INDICATIONS: abd pain TECHNIQUE: After the administration of intravenous contrast, 5 mm thick sections acquired from the diaphragm to the symphysis. 5 mm coronal and sagittal reformats were acquired. For radiation dose reduction, the following was used: automated exposure control, adjustment of mA and/or kV according to patient size. COMPARISON: [facility], , US ABDOMEN COMPLETE, 08/30/2018, 17:47. FINDINGS: Image quality: Excellent. ABDOMEN: Lung bases: There is mild dependent atelectasis. Heart size is normal. Solid organs: Multiple hepatic cysts are demonstrated with the largest in the right lobe measuring up to 9.1 cm. A few additional low density foci are also demonstrated Biliary system is non dilated. Pancreas enhances normally. Spleen is normal in size and enhancement. No adrenal nodules. The kidneys demonstrate no hydronephrosis. There is patchy heterogeneous enhancement of the right kidney consistent with a striated nephrogram and pyelonephritis. There is minimal right perinephric stranding. No perinephric fluid collections. A right parapelvic renal cyst is noted. The left kidney demonstrates normal enhancement. There is mild urothelial enhancement along the right ureter with periureteral fat stranding. There is minimal fat stranding adjacent to the left ureter. Peritoneum and bowel: Bowel loops demonstrate normal wall thickness and caliber. The appendix is normal in appearance. There is colonic diverticulosis without acute diverticulitis. No free fluid or air. Nodes and vessels: No retroperitoneal or mesenteric adenopathy by size criteria. Aorta and inferior vena cava are normal in size. Miscellaneous: No ventral hernias. PELVIS: Genitourinary: Bladder wall thickness is normal. Miscellaneous: No inguinal hernias or adenopathy. Bones: No suspicious bony lesions. There is a levoscoliosis of the lower lumbar spine centered at L4. No vertebral body compression fractures. IMPRESSION: 1. Heterogeneous right renal enhancement consistent with a striated nephrogram and pyelonephritis. No perinephric abscess or hydronephrosis identified. 2. Mild urothelial enhancement in the ureters bilaterally with associated mild fat stranding, right greater than left. The findings are compatible for urinary tract infection. Dictated by: Al Mathew M.D. on 08/30/2018 at 19:57 Approved by: Al Mathew M.D. on 08/30/2018 at 20:04
[2018-08-30 18:18] VITALS: BP 126/60; PULSE 77; RESP 74; O2SAT 100
[2018-08-30 18:27] LABS: Add Manual Diff / Slide Review NO; Basophils Percent Auto 0.2 % (0-2); Hematocrit 35.4 % (36-46); Hemoglobin 11.8 g/dL (12.0-16.0); Lymphocytes Percent Auto 9.1 % (25-40); Mean Corpuscular HGB Conc 33.3 % (30-36); Mean Corpuscular Hemoglobin 30.5 PG (26-34); Mean Corpuscular Volume 91.6 fL (80-100); Monocytes Percent Auto 11.3 % (3-14); Neutrophils Absolute Auto 13900 /uL (3000-5900); Neutrophils Percent Auto 79.4 % (50-75); Platelet Count 243 X10^3/uL (150-400); Red Blood Cell Count 3.86 X10^6/uL (4.0-5.2); White Blood Cell Count 17.5 X10^3/uL (4.5-11.0)
[2018-08-30 18:40] LABS: Lactate (Lactic Acid) 1.2 mmol/L (0.7-2.1)
[2018-08-30 18:42] LABS: Alanine Aminotransferase 71 IU/L (9-52); Albumin 3.5 g/dL (3.5-5.0); Albumin Globulin Ratio 1.2 (1.0-2.8); Alkaline Phosphatase 138 U/L (38-126); Amylase 36 U/L (30-110); Aspartate Aminotransferase 41 IU/L (14-36); BUN Creatinine Ratio 12.9 (6-22); Bilirubin Total 1.4 mg/dL (0.2-1.3); Blood Urea Nitrogen 9 mg/dL (7-17); Calcium 8.3 mg/dL (8.4-10.2); Carbon Dioxide 22 mmol/L (22-32); Chloride 108 mmol/L (98-107); Creatine Kinase 40 U/L (30-135); Estimated Glomerular Filt Rate > 60.0 mL/min (>60); Globulin 2.9 g/dL (1.7-4.1); Glucose 95 mg/dL (80-110); HEMOLYSIS < 15 (0-50); Lipase 37 U/L (23-300); Potassium 3.4 mmol/L (3.4-5.1); Sodium 142 mmol/L (137-145); Total Protein 6.4 g/dL (6.3-8.2)
[2018-08-30 18:56] LABS: Troponin I < 0.012 ng/mL (0.01-0.034)
[2018-08-30 19:03] LABS: Procalcitonin 0.69 ng/mL (<0.5)
[2018-08-30 19:38] VITALS: BP 109/66; PULSE 94; RESP 16; O2SAT 96
[2018-08-30] MEDS: levoFLOXacin 750 MG/150 ML PIGGYBACK 100 MG IV (20:13)
[2018-08-30 20:29] VITALS: BP 106/57; PULSE 94; RESP 14; O2SAT 97
[2018-08-30 21:45] VITALS: BP 98/51; PULSE 67; RESP 18; TEMP 36.8; O2SAT 97
--- NOTE | 2018-08-30 21:59 | PM.HP.1 ---
History of Present Illness Date Patient Seen: 08/30/18 Time Patient Seen: 22:00 Chief complaint: STATES PAIN IS BAD, THINKS GALBLADDER Narrative: 68-year-old female presents with increasing pain in the abdomen. She started having fevers over the weekend and then developed chills and total body ache and myalgias on Wednesday. Came into the emergency room and she was diagnosed with acute pyelonephritis she was given some fluids and placed on some Cipro and sent out. Over the course of the last 36 hr her pain has become worse more localized now to the right upper quadrant fever is better but she has been having increasing pain and nausea. Patient History Medical History Anxiety and depression (Chronic) H/O recurrent urinary tract infection (Chronic) Family & Social History Family History: Reviewed 08/30/18 by Guillermo Matt MD Family history unavailable: No Social History: Lives in [place] she still sees a doctor in [facility] Allergies Allergy/AdvReac Type Severity Reaction Status Date / Time Sulfa (Sulfonamide Allergy Verified 08/30/18 17:28 Antibiotics) Review of Systems Constitutional Constitutional: Reports body ache(s), Reports chills and Reports fever(s) Eyes Eyes: Reports system reviewed; no additional complaints, except as documented ENT Ears, Nose, Mouth, and Throat: Yes system reviewed; no additional complaints, except as documented Cardiovascular Cardiovascular: Reports system reviewed; no additional complaints, except as documented Respiratory Respiratory: Reports system reviewed and no additional complaints, except as documented Gastrointestinal Gastrointestinal: Reports abdominal pain Genitourinary Genitourinary: Denies urinary frequency and Denies urinary urgency Musculoskeletal Musculoskeletal: Reports myalgias Integumentary/Breasts Skin/Breast: Reports system reviewed and no additional complaints, except as documented Neurologic Neurologic: Reports system reviewed and no additional complaints, except as documented Psychiatric Psychiatric: Reports system reviewed and no additional complaints, except as documented Endocrine Endocrine: Reports system reviewed and no additional complaints, except as documented Hematologic/Lymphatic Hematologic/Lymphatic: Reports system reviewed and no additional complaints, except as documented Allergic/Immunologic Allergic/Immunologic: Reports system reviewed and no additional complaints, except as documented Exam Vital Signs (past 8 hours): - 08/30/18 17:26 08/30/18 18:18 08/30/18 19:38 Temperature 97.7 F Pulse Rate 82 77 94 H Respiratory Rate 22 74 H 16 Blood Pressure 129/73 Blood Pressure [Right Arm] 126/60 109/66 Pulse Oximetry 100 100 96 08/30/18 20:29 08/30/18 21:45 Temperature 98.2 F Pulse Rate 94 H 67 Respiratory Rate 14 18 Blood Pressure 98/51 L Blood Pressure [Right Arm] 106/57 L Pulse Oximetry 97 97 Oxygen Delivery Method Room Air Narrative Exam Narrative: Resting comfortably no acute distress HEENT exam unremarkable oropharynx clear Neck is supple no bruits no JVD Lungs are clear to auscultation Heart regular rhythm Back there is no CVA tenderness to palpation Abdomen some tenderness to palpation in the right upper quadrant bowel sounds are present no masses Lower extremities no edema Neuro exam awake alert oriented x3 no focal deficits Skin warm and dry Objective Labs Result Diagrams: 08/30/18 18:15 08/30/18 18:15 Labs: Laboratory Results - last 24 hr 08/30/18 08/30/18 08/30/18 18:15 18:15 18:15 WBC 17.5 H RBC 3.86 L Hgb 11.8 L Hct 35.4 L MCV 91.6 MCH 30.5 MCHC 33.3 RDW 12.0 Plt Count 243 Neut % (Auto) 79.4 H Lymph % (Auto) 9.1 L [place] % (Auto) 11.3 Eos % (Auto) 0.0 L Baso % (Auto) 0.2 Neut # (Auto) 97433 H Sodium 142 Potassium 3.4 Chloride 108 H Carbon Dioxide 22 BUN 9 Creatinine 0.70 Estimated GFR > 60.0 BUN/Creatinine Ratio 12.9 Glucose 95 Lactate Calcium 8.3 L Total Bilirubin 1.4 H AST 41 H ALT 71 H Alkaline Phosphatase 138 H Total Creatine Kinase 40 CK-MB (CK-2) TNP CK-MB (CK-2) Rel Index TNP Troponin I < 0.012 Total Protein 6.4 Albumin 3.5 Globulin 2.9 Albumin/Globulin Ratio 1.2 Amylase 36 Lipase 37 Procalcitonin 0.69 H 08/30/18 18:15 WBC RBC Hgb Hct MCV MCH MCHC RDW Plt Count Neut % (Auto) Lymph % (Auto) [place] % (Auto) Eos % (Auto) Baso % (Auto) Neut # (Auto) Sodium Potassium Chloride Carbon Dioxide BUN Creatinine Estimated GFR BUN/Creatinine Ratio Glucose Lactate 1.2 Calcium Total Bilirubin AST ALT Alkaline Phosphatase Total Creatine Kinase CK-MB (CK-2) CK-MB (CK-2) Rel Index Troponin I Total Protein Albumin Globulin Albumin/Globulin Ratio Amylase Lipase Procalcitonin Assessment & Plan Plan: Assessment/Plan Narrative: One. Acute pyelonephritis she evidently had cultures done yesterday they are however not available on the computer this evening she was re-cultured tonight. Plan to continue IV antibiotics for now and continue with IV fluids will wake her observation status hopefully overnight she will improve enough so where she can go home. No sign of kidney stones on the CT scan but that certainly would be a possible cause of her infection and pain and may need to be looked for specifically at some point 2. Mildly elevated liver enzymes plan to recheck in the morning no signs of any infection the gallbladder any gallbladder stones this could be just reactive from the pyelonephritis. CT does show changes consistent with pyelonephritis
[2018-08-30 22:06] VITALS: BMI 24.2
[2018-08-30] MEDS: SODIUM CHLORIDE 0.9% 1,000 ML 100 ML IV (22:52)
[2018-08-30] MEDS: ONDANSETRON 4 MG/2 ML INJ IV (22:52)
[2018-08-30 23:00] VITALS: O2SAT 100
[2018-08-31] VITALS (10 sets, daily range): BP systolic 91–120; BP diastolic 56–72; PULSE 62–87; RESP 16–62; TEMP 36.3–37.2; O2SAT 93–100
[2018-08-31] MEDS: METOCLOPRAMIDE 10 MG/2 ML INJ 5 MG IV ×2 (01:01→08:20)
[2018-08-31 05:52] LABS: Add Manual Diff / Slide Review NO; Basophils Percent Auto 0.3 % (0-2); Eosinophils Percent Auto 0.3 % (2-4); Hematocrit 32.6 % (36-46); Hemoglobin 10.9 g/dL (12.0-16.0); Lymphocytes Percent Auto 10.2 % (25-40); Mean Corpuscular HGB Conc 33.6 % (30-36); Mean Corpuscular Hemoglobin 30.6 PG (26-34); Mean Corpuscular Volume 91.2 fL (80-100); Monocytes Percent Auto 9.8 % (3-14); Neutrophils Absolute Auto 12400 /uL (3000-5900); Neutrophils Percent Auto 79.4 % (50-75); Platelet Count 239 X10^3/uL (150-400); Red Blood Cell Count 3.57 X10^6/uL (4.0-5.2); Red Cell Distribution Width 12.2 % (11.6-14.8); White Blood Cell Count 15.6 X10^3/uL (4.5-11.0)
[2018-08-31 06:02] LABS: Alanine Aminotransferase 62 IU/L (9-52); Albumin 3.1 g/dL (3.5-5.0); Albumin Globulin Ratio 1.1 (1.0-2.8); Alkaline Phosphatase 111 U/L (38-126); Aspartate Aminotransferase 28 IU/L (14-36); BUN Creatinine Ratio 11.7 (6-22); Bilirubin Total 0.7 mg/dL (0.2-1.3); Blood Urea Nitrogen 7 mg/dL (7-17); Calcium 7.9 mg/dL (8.4-10.2); Carbon Dioxide 21 mmol/L (22-32); Chloride 109 mmol/L (98-107); Estimated Glomerular Filt Rate > 60.0 mL/min (>60); Globulin 2.9 g/dL (1.7-4.1); Glucose 94 mg/dL (80-110); HEMOLYSIS < 15 (0-50); Potassium 3.5 mmol/L (3.4-5.1); Sodium 140 mmol/L (137-145)
[2018-08-31] MEDS: ENOXAPARIN 40 MG/0.4 ML SYRINGE SUBCUT (08:19)
--- NOTE | 2018-08-31 09:11 | CM.DANOTE ---
DCP: Case received, EMR reviewed and met with patient. Introduced self and role. DCP template completed with information currently available. Patient is a 68 year old female who admitted yesterday evening to the care of the hospitalist team. PCP: Dr. Madrid. Payer: Confirmed, Medicare/[employer] [facility]. Patient came in to hospital with symptoms of right upper quadrant pain radiating to her back. Patient also presented with fever and chills. Patient carries diagnosis of Acute Pyelonephritis. Is alert and oriented, pleasant. Lives alone in [facility] [place], and is independent. P: DCP to continue to assess. Patient wishes to return home when stable. Mimi Chacon RN/Framing Carpenter
[2018-08-31] MEDS: MORPHINE 2 MG/ML INJ IV ×2 (12:48→19:29)
--- NOTE | 2018-08-31 16:00 | PM.PN.1 ---
Subjective Date Patient Seen: 08/31/18 Time Patient Seen: 16:00 Interval history: FOLLOW UP ON PYELONEPHRITIS Patient seen at bedside. States her pain in RUQ has improved with Morphine. No SOB. No overnight events. Exam Vital Signs (past 8 hours): - 08/31/18 10:25 08/31/18 13:06 08/31/18 15:25 Temperature 98.9 F 98.7 F 97.6 F Pulse Rate 74 71 62 Respiratory Rate 16 16 62 H Blood Pressure 98/57 L 100/56 L Pulse Oximetry 97 96 100 Oxygen Delivery Method Room Air Oxygen Flow Rate 0 Narrative Exam Narrative: Gen: NAD, AAOx3 HEENT: PERRLA BL NEck: SUpple, no JVD CV: RRR, no murmurs Resp: CTA BL, no wheezing GI: No current tenderness to palpation Back: No CVA tenderness MSK: NL ROM Skin: No bruising or lesions Neuro: NFD Psych: Appropriate mood Objective Labs Result Diagrams: 08/31/18 05:26 08/31/18 05:26 Labs: Laboratory Results - last 24 hr 08/30/18 08/30/18 08/30/18 18:15 18:15 18:15 WBC 17.5 H RBC 3.86 L Hgb 11.8 L Hct 35.4 L MCV 91.6 MCH 30.5 MCHC 33.3 RDW 12.0 Plt Count 243 Neut % (Auto) 79.4 H Lymph % (Auto) 9.1 L [place] % (Auto) 11.3 Eos % (Auto) 0.0 L Baso % (Auto) 0.2 Neut # (Auto) 20230 H Sodium 142 Potassium 3.4 Chloride 108 H Carbon Dioxide 22 BUN 9 Creatinine 0.70 Estimated GFR > 60.0 BUN/Creatinine Ratio 12.9 Glucose 95 Lactate Calcium 8.3 L Total Bilirubin 1.4 H AST 41 H ALT 71 H Alkaline Phosphatase 138 H Total Creatine Kinase 40 CK-MB (CK-2) TNP CK-MB (CK-2) Rel Index TNP Troponin I < 0.012 Total Protein 6.4 Albumin 3.5 Globulin 2.9 Albumin/Globulin Ratio 1.2 Amylase 36 Lipase 37 Procalcitonin 0.69 H 08/30/18 08/31/18 08/31/18 18:15 05:26 05:26 WBC 15.6 H RBC 3.57 L Hgb 10.9 L Hct 32.6 L MCV 91.2 MCH 30.6 MCHC 33.6 RDW 12.2 Plt Count 239 Neut % (Auto) 79.4 H Lymph % (Auto) 10.2 L [place] % (Auto) 9.8 Eos % (Auto) 0.3 L Baso % (Auto) 0.3 Neut # (Auto) 16287 H Sodium 140 Potassium 3.5 Chloride 109 H Carbon Dioxide 21 L BUN 7 Creatinine 0.60 Estimated GFR > 60.0 BUN/Creatinine Ratio 11.7 Glucose 94 Lactate 1.2 Calcium 7.9 L Total Bilirubin 0.7 AST 28 ALT 62 H Alkaline Phosphatase 111 Total Creatine Kinase CK-MB (CK-2) CK-MB (CK-2) Rel Index Troponin I Total Protein 6.0 L Albumin 3.1 L Globulin 2.9 Albumin/Globulin Ratio 1.1 Amylase Lipase Procalcitonin Assessment & Plan Plan: Assessment/Plan Narrative: 1. Acute Pyelonephritis - improving - leukocytosis improving, afebrile - CT abd/pelvis reviewed: Heterogeneous right renal enhancement consistent with a striated nephrogram and pyelonephritis. No perinephric abscess or hydronephrosis identified. Mild urothelial enhancement in the ureters bilaterally with associated mild fat stranding, right greater than left. The findings are compatible for urinary tract infection. - Continue IVF .9NS @100cc/hr - Continue IV levofloxacin at this time - Morphine PRN for pain control and reglan/zofran for nausea/vomiting - Urine/ blood cx pending 2. Elevated LFTs - Improving: TBili .7, AST 28, ALT 62, AP 111 - US GB/Liver reviewed: No definite acute intra-abdominal sonographic abnormality. Multiple hepatic cysts measuring up to 9.5 cm. - Continue to monitor LFTs 3. Anxiety/Depression - Resume buproprion on discharge 25 min spent evaluating and providing care to patient
[2018-08-31] MEDS: levoFLOXacin 750 MG/150 ML PIGGYBACK 100 MG IV (22:00)
[2018-08-31] MEDS: SODIUM CHLORIDE 0.9% 1,000 ML 100 ML IV (22:01)
[2018-09-01 04:00] VITALS: BP 103/54; PULSE 70; RESP 16; TEMP 36.8; O2SAT 94
[2018-09-01 05:57] LABS: Add Manual Diff / Slide Review NO; Basophils Percent Auto 0.4 % (0-2); Hematocrit 30.1 % (36-46); Hemoglobin 10.3 g/dL (12.0-16.0); Lymphocytes Percent Auto 17.7 % (25-40); Mean Corpuscular HGB Conc 34.2 % (30-36); Mean Corpuscular Hemoglobin 31.2 PG (26-34); Mean Corpuscular Volume 91.1 fL (80-100); Monocytes Percent Auto 10.6 % (3-14); Neutrophils Absolute Auto 6400 /uL (3000-5900); Neutrophils Percent Auto 70.3 % (50-75); Platelet Count 278 X10^3/uL (150-400); Red Cell Distribution Width 12.5 % (11.6-14.8); White Blood Cell Count 9.1 X10^3/uL (4.5-11.0)
[2018-09-01 06:01] LABS: Alanine Aminotransferase 56 IU/L (9-52); Albumin 2.8 g/dL (3.5-5.0); Albumin Globulin Ratio 1.1 (1.0-2.8); Alkaline Phosphatase 94 U/L (38-126); Aspartate Aminotransferase 29 IU/L (14-36); BUN Creatinine Ratio 11.4 (6-22); Bilirubin Total 0.4 mg/dL (0.2-1.3); Blood Urea Nitrogen 8 mg/dL (7-17); Calcium 7.7 mg/dL (8.4-10.2); Carbon Dioxide 24 mmol/L (22-32); Chloride 110 mmol/L (98-107); Estimated Glomerular Filt Rate > 60.0 mL/min (>60); Globulin 2.6 g/dL (1.7-4.1); Glucose 93 mg/dL (80-110); HEMOLYSIS < 15 (0-50); Potassium 3.4 mmol/L (3.4-5.1); Sodium 142 mmol/L (137-145); Total Protein 5.4 g/dL (6.3-8.2)
[2018-09-01 07:30] VITALS: BP 124/70; PULSE 69; RESP 18; TEMP 36.7; O2SAT 99
[2018-09-01 09:40] VITALS: O2SAT 99
[2018-09-01] MEDS: SODIUM CHLORIDE 0.9% 1,000 ML 100 ML IV (09:45)
[2018-09-01] MEDS: ENOXAPARIN 40 MG/0.4 ML SYRINGE SUBCUT (09:45)
[2018-09-01 12:00] VITALS: BP 126/76; PULSE 69; RESP 18; TEMP 37.1; O2SAT 99
--- NOTE | 2018-09-01 14:30 | PM.DS.1 ---
History of Present Illness Date Patient Seen: 09/01/18 Time Patient Seen: 14:30 Chief complaint: STATES PAIN IS BACK, THINKS GALBLADDER Narrative: 68-year-old female with past medical history of anxiety and depression presented to emergency department with increasing abdominal pain. Patient stated the symptoms initially began 3 days prior to admission, where she developed chills, total body aches, myalgias, and right upper quadrant pain radiating to the back. Symptoms progressively got worse and patient came to emergency department on 08/29/2018. During that time she was told she had acute pyelonephritis, was given IV boluses, placed on ciprofloxacin p.o., and sent home. Nevertheless, patient's condition continued to worsen and abdominal pain continued to increase, therefore patient came back to emergency department on 08/30/2018. Patient stated she was being nauseous, however did not vomit. Denied any diarrhea or constipation. Denied any melenic stools. Denied any shortness of breath or chest pain. Denied any cough or URI like symptoms. Denied any loss of consciousness or blurry vision. Denied hematuria, urinary frequency, or pain with urination. Discharge Providers Date of admission: 08/30/18 20:58 Discharge provider: Mignon Bonner MD Discharge Date: 09/01/18 Summary Discharge Diagnosis: Acute Pyelonephritis, resolving Elevated LFTs, resolving Anxiety/Depression Hospital Course: In the emergency department, patient's temperature was 97.7?, pulse 82, respiratory 22, blood pressure 129/73, saturating 100% on room air. Lab work revealed WBC 17.5, hemoglobin 11.8, hematocrit 35.4, platelets 243. Sodium 142, potassium 3.4, chloride 108, bicarb 22, BUN 9, creatinine 0.70, glucose 95. Total bilirubin 1.4, AST 41, ALT 71, alkaline phosphatase 138. Troponin was negative. Lipase was 37. Procalcitonin was 0.69. Lactic acid was 1.2. Abdominal gallbladder ultrasound was performed which showed no gallstones, gallbladder thickening, or pericolecystic fluid. CT of the abdomen pelvis was done which revealed heterogenous right renal enhancement consistent with a striated nephrogram and pyelonephritis. No perinephric abscesses or hydronephrosis identified. Mild urothelial enhancement of ureters bilaterally with associated mild fat stranding consistent with urinary tract infection. Patient was admitted for further management of acute pyelonephritis. Once admitted, patient was placed on IV levofloxacin, IV fluids, and morphine IV as needed for pain control. She was also given Reglan/Zofran for nausea and vomiting. Blood cultures were drawn which came back as negative for any growth. Urine cultures seem to have never been drawn. Patient will now be switched to levofloxacin p.o. 750 mg daily for 11 more days. She will be given [place] 03/17/2025 10 tablets to take home as needed for pain. As mentioned above, the patient's LFTs were elevated on admission. Ultrasound of the gallbladder done and showed no acute cholecystitis or cholelithiasis. However multiple hepatic cysts measuring up to 9.5 cm were noted. LFT subsequently down trended. Status at Discharge Functional status at discharge: independent ambulation Overall status at discharge: patient is not back to baseline Time Spent with Patient Less than 30 minutes Exam Vital Signs (past 8 hours): - 09/01/18 07:30 09/01/18 09:40 09/01/18 12:00 Temperature 98.1 F 98.8 F Pulse Rate 69 69 Respiratory Rate 18 18 Blood Pressure 124/70 126/76 Pulse Oximetry 99 99 99 Oxygen Delivery Method Room Air Oxygen Flow Rate 0 Narrative Exam Narrative: Gen: NAD, AAOx3 HEENT: PERRLA BL NEck: SUpple, no JVD CV: RRR, no murmurs Resp: CTA BL, no wheezing GI: No current tenderness to palpation, +BS, no organomegally Back: No CVA tenderness MSK: NL ROM Skin: No bruising or lesions Neuro: NFD Psych: Appropriate mood, excited to go home Objective Labs Result Diagrams: 09/01/18 05:26 09/01/18 05:26 Labs: Laboratory Results - last 24 hr 09/01/18 09/01/18 05:26 05:26 WBC 9.1 RBC 3.30 L Hgb 10.3 L Hct 30.1 L MCV 91.1 MCH 31.2 MCHC 34.2 RDW 12.5 Plt Count 278 Neut % (Auto) 70.3 Lymph % (Auto) 17.7 L [place] % (Auto) 10.6 Eos % (Auto) 1.0 L Baso % (Auto) 0.4 Neut # (Auto) 6400 H Sodium 142 Potassium 3.4 Chloride 110 H Carbon Dioxide 24 BUN 8 Creatinine 0.70 Estimated GFR > 60.0 BUN/Creatinine Ratio 11.4 Glucose 93 Calcium 7.7 L Total Bilirubin 0.4 AST 29 ALT 56 H Alkaline Phosphatase 94 Total Protein 5.4 L Albumin 2.8 L Globulin 2.6 Albumin/Globulin Ratio 1.1 Discharge Plan Discharge Plan Discharge Problem: Acute pyelonephritis, Liver cyst Patient Disposition: Home Discharge Med Rec/Prescriptions Prescriptions: New hydrocodone-acetaminophen [[place]] 5-325 mg tablet 1 tab PO Q6H PRN (Reason: pain (scale score 4-6)) Qty: 10 RF: 0 levofloxacin 750 mg tablet 750 mg PO DAILY Qty: 11 RF: 0 Continue bupropion HCl 150 mg tablet extended release 24 hr 1 tab PO DAILY RF: 0 ondansetron HCl 4 mg tablet 1 tab PO Q8H PRN (Reason: Nausea) RF: 0 ciprofloxacin HCl 500 mg tablet 500 mg PO BID RF: 0 Follow up/Referrals: Provider,Conversion [Non-Staff] - 1 Week Provider Discharge Instructions Diet: Regular Visit Report/Discharge Packet Stand Alone Forms: Work/Release Restrictions Discharge Data Attending Provider: Guillermo Matt Admit Date/Time: 08/30/18 20:58
--- NOTE | 2018-09-01 15:19 | PC.NURSE ---
discharge PIV removed prior to d/c. d/c. instructions provided to pt. Notified to f/u with MD as well as for any questions or concerns. Per MD, ok to return to work wednesday with no restrictions. pt took all belongings with her. awaiting ride home at change of shift.
--- NOTE | 2018-09-01 16:13 | PC.NURSE ---
Lisa shift note: Patient awake and alert, discharge instructions given by Rylee VU. Patient verbalized understanding of instructions including F/U and prescribed medications. Discharge home via private vehicle assisted by Ramya MCLEOD in stable condition.
== END 2018-09-01 16:00 | disposition home or self-care (01) | DRG 690 ==
LOC: ED 17:48 → AC 21:02
PROVIDERS: Internal Medicine; Admitting Provider Internal Medicine; Emergency Provider Nurse Practitioner Family; Visit Provider Internal Medicine
DX: N10 Acute pyelonephritis (principal); F41.9 Anxiety disorder, unspecified; F32.9 Major depressive disorder, single episode, unspecified; E80.6 Other disorders of bilirubin metabolism; R94.5 Abnormal results of liver function studies
CPT/HCPCS: 36415; 74177; 76700; 80053; 81003; 82150; 82550; 83605; 83690; 84145; 84484; 85025; 87040; 93005; 93010; 96361; 96365; 96366; 96375; 96376; 99284; 99285; J1650; J1956; J2270; J2405; J2765; Q9967

== ENCOUNTER → 2018-09-22 14:00 | Outpatient (CLI) | payer BC, SELFPAY ==
[2018-08-30 22:06] VITALS: BMI 24.2
== END ==
DX: Z23 Encounter for immunization (principal)
CPT/HCPCS: 90471; 90662

== ENCOUNTER → 2018-11-25 08:02 | Outpatient (CLI) | payer BC, SELFPAY ==
[2018-11-25 09:41] LABS: Add Manual Diff / Slide Review NO; Basophils Percent Auto 0.6 % (0-2); Eosinophils Percent Auto 1.8 % (2-4); Hematocrit 41.1 % (36-46); Hemoglobin 14.1 g/dL (12.0-16.0); Lymphocytes Percent Auto 42.8 % (25-40); Mean Corpuscular HGB Conc 34.3 % (30-36); Mean Corpuscular Hemoglobin 30.9 PG (26-34); Mean Corpuscular Volume 90.2 fL (80-100); Neutrophils Absolute Auto 2400 /uL (1500-7000); Neutrophils Percent Auto 43.8 % (50-75); Platelet Count 298 X10^3/uL (150-400); Red Blood Cell Count 4.56 X10^6/uL (4.0-5.2); White Blood Cell Count 5.6 X10^3/uL (4.5-11.0)
[2018-11-25 10:12] LABS: Cholesterol 248 mg/dL (140-199); HDL Cholesterol 39 mg/dL (40-60); LDL Cholesterol Calculated 145 mg/dL (<100); Triglycerides 318 mg/dL (35-150)
== END ==
PROVIDERS: Visit Provider Nurse Practitioner Family
DX: D64.9 Anemia, unspecified (principal); N15.9 Renal tubulo-interstitial disease, unspecified; E78.5 Hyperlipidemia, unspecified; Z12.11 Encounter for screening for malignant neoplasm of colon
CPT/HCPCS: 36415; 80061; 85025

== ENCOUNTER → 2019-09-19 12:09 | Outpatient (CLI) | payer BC, SELFPAY ==
[2019-09-23 11:22] LABS: Mitogen-NIL 9.78 IU/mL; NIL 0.01 IU/mL; QuantiFERON TB NEGATIVE (Negative); TB1-NIL < 0.01 IU/mL; TB2-NIL 0.01 IU/mL
== END ==
PROVIDERS: Visit Provider Internal Medicine
DX: Z11.1 Encounter for screening for respiratory tuberculosis (principal)
CPT/HCPCS: 36415; 86480

== ENCOUNTER → 2019-09-25 14:36 | Outpatient (CLI) | payer BC, MEDICARE, SELFPAY | DX: Z23 Encounter for immunization (principal) | CPT/HCPCS: 90471; 90662 ==